=== PATIENT | female | born 1955 | race Caucasian/White ===

== ENCOUNTER 2021-05-10 11:57 | Emergency (ER) | payer OTHER, BC ==
[~2021-05-10] VITALS: Ht 162.6 cm; Wt 72.6 kg
[2021-05-10 12:29] LABS: ABSOLUTE NEUTROPHILS 8.8 thou/uL (1.4-8.2); BASOPHILS 0.4 % (0.0-2.0); EOSINOPHILS 0.2 % (0.0-3.0); HEMATOCRIT 42.5 % (37.0-47.0); HEMOGLOBIN 14.1 gm/dL (12.0-15.0); LYMPHOCYTES 12.6 % (24.0-44.0); MCH 29.6 pg (26.0-34.0); MCHC 33.1 g/dL (28.0-37.0); MCV 89.4 fL (80.0-100.0); MONOCYTES 4.9 % (1.0-8.0); PLATELET COUNT 247 thou/uL (150-400); POLYS 81.9 % (36.0-66.0); RBC 4.76 mil/uL (4.20-5.00); RDW 13.7 % (10.5-14.5); WBC 10.8 thou/uL (4.0-11.0)
[2021-05-10 13:01] LABS: CALCIUM 9.6 mg/dL (8.5-10.1); POTASSIUM 4.1 mmol/L (3.5-5.1)
[2021-05-10 13:07] LABS: ALBUMIN 4.2 g/dL (3.4-5.0); TOTAL BILIRUBIN 0.4 mg/dL (0.2-1.0); TOTAL PROTEIN 7.6 g/dL (6.4-8.2)
[2021-05-10 15:08] LABS: URINE BILIRUBIN NEGATIVE (Negative); URINE BLOOD NEGATIVE (Negative); URINE CLARITY CLEAR; URINE COLOR YELLOW; URINE GLUCOSE-RANDOM* NEGATIVE (Negative); URINE KETONES NEGATIVE (Negative); URINE LEUKOCYTES-REFLEX NEGATIVE (Negative); URINE PROTEIN (DIPSTICK) NEGATIVE (Negative); URINE SPECIFIC GRAVITY 1.015 (1.005-1.035); URINE UROBILINOGEN 0.2 E.U./dl (0.2-1.0)
[2021-05-10 15:11] LABS: URINE NITRITE-REFLEX POSITIVE (Negative)
[2021-05-10 15:24] LABS: BACTERIA-REFLEX 1-9 Few /HPF (None Seen); CASTS None Seen /LPF (None Seen); CRYSTALS None Seen /LPF (None Seen); SQUAMOUS 0-3 Few /LPF (0-3); URINE RBC None Seen /HPF (NONE SEEN); URINE WBC-REFLEX None Seen /HPF (0-5)
[2021-05-10] MEDS ORDERED: ZOFRAN ODT4 MG PO (16:17)
[2021-05-10] MEDS ORDERED: NORCO5 PO (16:17)
[2021-05-10] MEDS ORDERED: CEPHALEXIN500 MG PO (16:17)
[2021-05-10 16:30] VITALS: BP 151/78
== END 2021-05-10 16:30 | disposition home or self-care (01) ==
LOC: ER 11:57
PROVIDERS: Emergency Medicine
DX: N20.0 Calculus of kidney (principal)